=== PATIENT | female | born 1960 | race Caucasian/White ===

== ENCOUNTER → 2024-04-13 | Day surgery (SDC) | payer MEDICAID ==
[~2024-04-13] VITALS: Ht 165.1 cm; Wt 65.8 kg
[~2024-04-13] MED LIST: BIOT1CAP3 PO; BUPIVACAINE HCL/PF 0.5% (5MG/ML) 10ML ONE; CHOL-36 PO; CYAN250010 PO; FENTANYL CITRATE/PF 50MCG/ML 2ML VIAL ONE; HYDROMORPHONE HCL/PF 1MG/ML INJ IV PRN; LIDOCAINE HCL 1% 20ML VIAL ONE; MIDAZOLAM HCL 2 MG/2 ML VIAL ONE; ONDANSETRON HCL 4MG/2ML INJ IV PRN; POLYMYXIN B SULFATE 500000 UNITS/VIAL ONE; PROPOFOL 200MG/20ML VIAL IV ONE; TIRZ10PE3 SUBCUT; TRIAMCINOLONE ACETONIDE 40MG/ML 1ML VIAL ONE; [UNRECOGNIZED DRUG - CODE] PO
[2024-04-13 10:13] LABS: BASOPHILS % 0.3 % (0.0-2.0); EOSINOPHILS % 1.4 % (0.0-5.0); HEMATOCRIT. 42.8 % (36.0-48.0); HEMOGLOBIN. 13.8 g/dL (12.0-16.0); LYMPHOCYTES % 40.6 % (20.0-50.0); MEAN CORPUSCULAR HGB CONC 32.3 g/dL (31.0-37.0); MEAN CORPUSCULAR VOLUME 92.9 fL (81.0-99.0); MEAN PLATELET VOLUME 8.6 fl (7.4-10.4); MONOCYTES % 7.8 % (2.0-8.0); NEUTROPHILS % 49.9 % (40.0-76.0); PLATELET 262 x1000/uL (130-400); RED CELL DISTRIBUTION WIDTH 14.3 % (11.6-14.6)
[2024-04-13 10:15] LABS: POTASSIUM 4.9 mEq/L (3.5-5.1)
[2024-04-13 10:16] LABS: CALCIUM 9.4 mg/dL (8.7-10.4)
[2024-04-13] MEDS: SODIUM CHLORIDE 0.9% 1,000 ML IV SCH (11:05)
== END | disposition home or self-care (01) ==
LOC: OR 09:43
PROVIDERS: ATTEND Podiatrist Foot & Ankle Surgery
DX: M19.071 Primary osteoarthritis, right ankle and foot (principal); M20.41 Other hammer toe(s) (acquired), right foot; M20.5X1 Other deformities of toe(s) (acquired), right foot; Z79.899 Other long term (current) drug therapy; Z98.890 Other specified postprocedural states
CPT/HCPCS: 28270; 97161; 28285; 28289; 80048; 85025; 36415; 88300; 73630; 97116; J3010; J3490 ×3; J2250; J2704; J3301; C1776